=== PATIENT | male | born 1990 | race African-American/Black ===

== ENCOUNTER 2022-07-27 13:18 | Emergency (ER) | payer OTHER ==
[2022-07-27 13:40] VITALS: RESP 16
[2022-07-27] MEDS ORDERED: IBUPROFEN 800 MG TAB PO STA (14:00)
--- NOTE | 2022-07-27 14:12 | ED ---
General Adult HPI - General Chief complaint: Extremity Problem,Nontraumatic Stated complaint: left arm pain/weakness Time Seen by Provider: 07/27/22 13:43 Source: patient, RN notes reviewed, old records reviewed Mode of arrival: ambulatory - History of Present Illness Initial comments: Patient is a 31-year-old male who presents to [facility] Department complaining of left elbow pain. Atraumatic. States it started 2 days ago. Primary located over the superior aspect of the posterior left elbow. Tender on palpation. Tenderness with full flexion and extension. No tenderness over the bicep or tricep muscle. No obvious injury. No obvious rash or skin changes. No numbness. Presents for further evaluation at this time. No fevers. - Related Data Home Medications Medication Instructions Recorded Confirmed No Known Home Medications 07/27/22 07/27/22 Allergies Allergy/AdvReac Type Severity Reaction Status Date / Time No Known Allergies Allergy Verified 07/27/22 15:05 Review of Systems ROS Statement: Those systems with pertinent positive or pertinent negative responses have been documented in the HPI. Review of Systems: CONST: Denies fever EYES: Denies blurry vision ENT: Denies nasal congestion C/V: Denies Chest pain RESP: Denies shortness of breath GI: Denies abdominal pain : Denies dysuria SKIN: Denies rash. MSK: Endorses left elbow pain NEURO: Denies headache ROS Other: All systems not noted in ROS Statement are negative. Past Medical History Past Medical History: Hypertension History of Any Multi-Drug Resistant Organisms: None Reported Past Surgical History: No Surgical Hx Reported Past Psychological History: No Psychological Hx Reported Smoking Status: Current every day smoker Past Alcohol Use History: Occasional Past Drug Use History: Marijuana General Exam - General Exam Comments Initial Comments: General: Appears in no acute distress. HEAD: Normal with no signs of head trauma. EYES: EOMI. ENT: Hearing grossly intact. RESPIRATORY: No respiratory distress. C/V: Regular rate and rhythm. ABD: Abdomen is nondistended. EXT: No obvious deformity. Tenderness to palpation over the posterior aspect of the superior left elbow along the distal humerus but no obvious step-offs or deformities. Normal range of motion. Neurovascular intact in the left upper extremity. No obvious injury. Exam unremarkable. Skin unremarkable. SKIN: No rashes or lesions observed on exposed skin. NEURO: Alert and oriented. Course Vital Signs 07/27/22 07/27/22 13:35 15:21 Temperature 98.1 F 98 F Pulse Rate 87 84 Respiratory 16 16 Rate Blood Pressure 129/94 120/76 O2 Sat by Pulse 99 99 Oximetry Medical Decision Making - Medical Decision Making Was pt. sent in by a medical professional or institution (, RIGO, ASBESTOS ABATEMENT TECHNICIAN, urgent care, hospital, or custodial...) When possible be specific @ -No Did you speak to anyone other than the patient for history (EMS, parent, family, police, friend...)? What history was obtained from this source @ -No Did you review nursing and triage notes (agree or disagree)? Why? @ -I reviewed and agree with nursing and triage notes Were old charts reviewed (outside hosp., previous admission, EMS record, old EKG, old radiological studies, urgent care reports/EKG's, custodial records)? Report findings @ -No old charts were reviewed Differential Diagnosis (chest pain, altered mental status, abdominal pain women, abdominal pain men, vaginal bleeding, weakness, fever, dyspnea, syncope, headache, dizziness, GI bleed, back pain, seizure, CVA, palpatations, mental health, musculoskeletal)? @ -Muscle Strain, muscle sprain, elbow fracture. This list is not all-in clusive. EKG interpreted by me (3pts min.). @ -None done X-rays interpreted by me (1pt min.). @ -Patient's left elbow x-ray negative for any acute traumatic injury that is obvious. CT interpreted by me (1pt min.). @ -None done U/S interpreted by me (1pt. min.). @ -None done What testing was considered but not performed or refused? (CT, X-rays, U/S, labs)? Why? @ -None What meds were considered but not given or refused? Why? @ -None Did you discuss the management of the patient with other professionals (professionals i.e. RIGO Galdamez, ASBESTOS ABATEMENT TECHNICIAN, lab, RT, psych nurse, social media content manager, digital account executive, teacher, airconditioning drafting officer, case liner)? Give summary @ -No Was smoking cessation discussed for >3mins.? @ -No Was critical care preformed (if so, how long)? @ -No Were there social determinants of health that impacted care today? How? (Homelessness, low income, unemployed, alcoholism, drug addiction, transportation, low edu. Level, literacy, decrease access to med. care, residential, rehab)? @ -No Was there de-escalation of care discussed even if they declined (Discuss DNR or withdrawal of care, Hospice)? DNR status @ -No What co-morbidities impacted this encounter? (DM, HTN, Smoking, COPD, CAD, Cancer, CVA, ARF, Chemo, Hep., AIDS, mental health diagnosis, sleep apnea, morbid obesity)? @ -None Was patient admitted / discharged? Hospital course, mention meds given and route, prescriptions, significant lab abnormalities, going to OR and other pertinent info. @ -Based on the patient's presentation and physical exam, I'm concerned for left elbow injury. His atraumatic. We will obtain x-ray imaging and left elbow and he will be provided with oral ibuprofen for analgesia. Patient was in agreement with this plan. Exam unremarkable. Vital signs within acceptable limits. Patient's x-ray negative for any acute fracture or subluxation. Discussed the findings with the patient. He'll be discharged home at this time. Discussed icing, rest, elevation as well as [id number] analgesic medications for pain control. Recommended follow-up with orthopedics. Strict return precautions discussed. He'll be given a work note. He was in agreement this plan. I instructed the patient to follow up with their PCP in the next 1-3 days. I provided contact information for follow up with orthopedics. I explained that the patient should return to the emergency department if they experience any worsening symptoms. Strict return precautions were discussed with the patient. The patient expressed understanding of these instructions. I answered all questions that the patient had. The patient was discharged home in good condition with their prescriptions and follow up information. Undiagnosed new problem with uncertain prognosis? @ -No Drug Therapy requiring intensive monitoring for toxicity (Heparin, Nitro, Insulin, Cardizem)? @ -No Were any procedures done? @ -No Diagnosis/symptom? @ -Left elbow strain, sprain Acute, or Chronic, or Acute on Chronic? @ -Acute Uncomplicated (without systemic symptoms) or Complicated (systemic symptoms)? @ -uncomplicated Side effects of treatment? @ -none Exacerbation, Progression, or Severe Exacerbation] @ -no Poses a threat to life or bodily function? @ -no Disposition Clinical Impression: Sprain of elbow, left Disposition: HOME SELF-CARE Condition: Good Instructions (If sedation given, give patient instructions): Muscle Strain (ED) Is patient prescribed a controlled substance at d/c from ED?: No Referrals: None,Stated [Primary Care Provider] - 1-2 days Ganga Mon DO [Doctor of Osteopathic Medicine] - 1-2 days Time of Disposition: 14:46
--- NOTE | 2022-07-27 14:25 | XR ---
EXAMINATION TYPE: XR elbow complete LT DATE OF EXAM: 07/27/2022 COMPARISON: NONE HISTORY: 31-year-old male with pain TECHNIQUE: 3 views FINDINGS: No elbow joint effusion. No acute fracture, subluxation, or dislocation seen. IMPRESSION: No acute osseous abnormality seen.
[2022-07-27 15:22] VITALS: BP 120/76; PULSE 84; TEMP 98
== END 2022-07-27 15:22 | disposition home or self-care (01) ==
LOC: EC 13:18
DX: S53.402A Unspecified sprain of left elbow, initial encounter (principal); I10 Essential (primary) hypertension; F12.90 Cannabis use, unspecified, uncomplicated; F17.200 Nicotine dependence, unspecified, uncomplicated; X58.XXXA Exposure to other specified factors, initial encounter
CPT/HCPCS: 99283

== ENCOUNTER 2024-01-24 11:31 | Emergency (ER) | payer OTHER ==
[2024-01-24 11:45] VITALS: TEMP 98.7
--- NOTE | 2024-01-24 12:17 | ED ---
General Adult HPI - General Chief complaint: Extremity Injury, Lower Stated complaint: L foot pain Time Seen by Provider: 01/24/24 11:48 Source: patient, RN notes reviewed Mode of arrival: ambulatory Limitations: no limitations - History of Present Illness Initial comments: Patient is a 33-year-old male presenting to the emergency department with concer ns for left foot pain. Patient states he was walking steps yesterday when he tripped. Patient inverted his left foot. Patient has had pain since that time. No other area of injury or concern. Patient is able to ambulate with pain. No head injury or loss of consciousness - Related Data Previous Rx's Medication Instructions Recorded Ibuprofen [Motrin] 600 mg PO Q6HR PRN #20 tab 01/24/24 Allergies Allergy/AdvReac Type Severity Reaction Status Date / Time No Known Allergies Allergy Verified 07/27/22 15:05 Review of Systems ROS Statement: Those systems with pertinent positive or pertinent negative responses have been documented in the HPI. ROS Other: All systems not noted in ROS Statement are negative. Constitutional: Denies: fever Eyes: Denies: eye pain ENT: Denies: ear pain Respiratory: Denies: dyspnea Musculoskeletal: Reports: as per HPI. Denies: back pain Past Medical History Past Medical History: Hypertension History of Any Multi-Drug Resistant Organisms: None Reported Past Surgical History: No Surgical Hx Reported Past Psychological History: No Psychological Hx Reported Smoking Status: Current every day smoker Past Alcohol Use History: Occasional Past Drug Use History: Marijuana General Exam Limitations: no limitations General appearance: alert, in no apparent distress Head exam: Present: atraumatic, normocephalic Eye exam: Present: normal appearance Neck exam: Present: normal inspection. Absent: tenderness Respiratory exam: Present: normal lung sounds bilaterally Cardiovascular Exam: Present: regular rate, normal rhythm Expanded Peripheral pulses: 2+: Posterior Tibialis (L) GI/Abdominal exam: Present: soft. Absent: tenderness Extremities exam: Present: tenderness (Left medial/lateral foot with mild swelling and moderate tenderness. Distally the extremity is neurovascular intact) Neurological exam: Present: alert. Absent: motor sensory deficit Psychiatric exam: Present: normal affect, normal mood Skin exam: Present: normal color Course Vital Signs 01/24/24 01/24/24 11:43 12:21 Temperature 98.7 F Pulse Rate 95 102 H Respiratory 16 14 Rate Blood Pressure 99/63 124/85 O2 Sat by Pulse 99 97 Oximetry Medical Decision Making - Medical Decision Making Was pt. sent in by a medical professional or institution (, RIGO, COMB SETTER, urgent care, hospital, or prison...) When possible be specific @ -No Did you speak to anyone other than the patient for history (EMS, parent, family, police, friend...)? What history was obtained from this source @ -No Did you review nursing and triage notes (agree or disagree)? Why? @ -I reviewed and agree with nursing and triage notes Were old charts reviewed (outside hosp., previous admission, EMS record, old EKG, old radiological studies, urgent care reports/EKG's, prison records)? Report findings @ -No old charts were reviewed Differential Diagnosis (chest pain, altered mental status, abdominal pain women, abdominal pain men, vaginal bleeding, weakness, fever, dyspnea, syncope, headache, dizziness, GI bleed, back pain, seizure, CVA, palpatations, mental health, musculoskeletal)? @ -Differential Musculoskeletal Muscular strain, contusion, ligament sprain, fracture, arthritis, septic arthritis, bursitis, cellulitis, muscle spasm, nerve compression, DVT, arterial occlusion, herpes zoster, electrolyte abnormality, tumor.... This is not meant to be in all inclusive list EKG interpreted by me (3pts min.). @ -As above X-rays interpreted by me (1pt min.). @ -X-ray of the left foot does not reveal acute fracture CT interpreted by me (1pt min.). @ -None done U/S interpreted by me (1pt. min.). @ -None done What testing was considered but not performed or refused? (CT, X-rays, U/S, labs)? Why? @ -None What meds were considered but not given or refused? Why? @ -None Did you discuss the management of the patient with other professionals (professionals i.e. RIGO Galdamez, COMB SETTER, lab, RT, psych nurse, social welfare research worker, pulp plant supervisor, teacher, program officer, case consultant)? Give summary @ -No Was smoking cessation discussed for >3mins.? @ -No Was critical care preformed (if so, how long)? @ -No Were there social determinants of health that impacted care today? How? (Homelessness, low income, unemployed, alcoholism, drug addiction, transportation, low edu. Level, literacy, decrease access to med. care, skilled nursing, rehab)? @ -No Was there de-escalation of care discussed even if they declined (Discuss DNR or withdrawal of care, Hospice)? DNR status @ -No What co-morbidities impacted this encounter? (DM, HTN, Smoking, COPD, CAD, Cancer, CVA, ARF, Chemo, Hep., AIDS, mental health diagnosis, sleep apnea, morbid obesity)? @ -None Was patient admitted / discharged? Hospital course, mention meds given and route, prescriptions, significant lab abnormalities, going to OR and other pertinent info. @ -Patient presents with left foot pain and swelling following fall and twisting. X-ray unremarkable. Patient updated. Patient will be discharged Undiagnosed new problem with uncertain prognosis? @ -No Drug Therapy requiring intensive monitoring for toxicity (Heparin, Nitro, Insulin, Cardizem)? @ -No Were any procedures done? @ -No Diagnosis/symptom? @ -Left foot sprain Acute, or Chronic, or Acute on Chronic? @ -Acute Uncomplicated (without systemic symptoms) or Complicated (systemic symptoms)? @ -Default Side effects of treatment? @ -No Exacerbation, Progression, or Severe Exacerbation? @ -No Poses a threat to life or bodily function? How? (Chest pain, [place], [place], pneumonia, PE, COPD, DKA, ARF, appy, cholecystitis, CVA, Diverticulitis, Homicidal, Suicidal, threat to staff... and all critical care pts) @ -No Disposition Clinical Impression: Sprain of foot, left Disposition: HOME SELF-CARE Condition: Stable Instructions (If sedation given, give patient instructions): Foot Sprain (ED) Additional Instructions: Prescription for Motrin 600 sent to pharmacy. [id number] Tylenol as needed. Ice to affected area. Return for increased pain, swelling, worsening symptoms or other concerns. Please follow-up with your primary care physician in the next couple of days for recheck. Prescriptions: Ibuprofen [Motrin] 600 mg PO Q6HR PRN #20 tab PRN Reason: Pain Is patient prescribed a controlled substance at d/c from ED?: No Referrals: Jono Jimenez MD [STAFF PHYSICIAN] - 1-2 days Forms: Area PCPs Time of Disposition: 13:17
--- NOTE | 2024-01-24 12:47 | XR ---
EXAMINATION TYPE: XR foot complete LT DATE OF EXAM: 01/24/2024 12:27 PM COMPARISON: None CLINICAL INDICATION: Male, 33 years old with history of fall; pain TECHNIQUE: XR foot complete LT examined in the AP, oblique, and lateral projections. FINDINGS: No evidence of any acute osseous pathology. IMPRESSION: No evidence of acute fracture. [facility], , 01/24/2024 12:45 PM
[2024-01-24] MEDS: IBUPROFEN 600 MG TAB PO STA (13:33)
[2024-01-24] MEDS: ACETAMINOPHEN TAB 500 MG TAB PO STA (13:34)
[2024-01-24 13:55] VITALS: BP 125/84; PULSE 82; RESP 18
== END 2024-01-24 13:54 | disposition home or self-care (01) ==
LOC: EC 11:31
DX: S93.602A Unspecified sprain of left foot, initial encounter (principal); F17.200 Nicotine dependence, unspecified, uncomplicated; W01.0XXA Fall on same level from slipping, tripping and stumbling without subsequent striking against object, initial encounter; Y93.01 Activity, walking, marching and hiking
CPT/HCPCS: 99283

== ENCOUNTER 2024-02-15 18:18 | Emergency (ER) | payer OTHER ==
[2024-02-15 18:39] VITALS: RESP 18; TEMP 98.3
[2024-02-15 18:57] VITALS: BP 131/97; PULSE 85
--- NOTE | 2024-02-15 19:10 | ED ---
General Adult HPI - General Chief complaint: Recheck/Abnormal Lab/Rx Stated complaint: Swollen thyroid gland Time Seen by Provider: 02/15/24 18:51 Source: patient, RN notes reviewed, old records reviewed Mode of arrival: ambulatory Limitations: no limitations - History of Present Illness Initial comments: 33 male presenting with chief complaint of possible swollen thyroid gland. Patient was seen at the [facility] and was thought to have a enlarged thyroid gland. Patient has no medical history. He takes no medications. No recent weight loss or weight gain. No night sweats. He is not fatigued. He states he feels totally fine. no recent Illness. - Related Data Previous Rx's Medication Instructions Recorded Ibuprofen [Motrin] 600 mg PO Q6HR PRN #20 tab 01/24/24 Allergies Allergy/AdvReac Type Severity Reaction Status Date / Time No Known Allergies Allergy Verified 02/15/24 18:33 Review of Systems ROS Statement: Those systems with pertinent positive or pertinent negative responses have been documented in the HPI. ROS Other: All systems not noted in ROS Statement are negative. Past Medical History Past Medical History: Hypertension History of Any Multi-Drug Resistant Organisms: None Reported Past Surgical History: No Surgical Hx Reported Past Psychological History: No Psychological Hx Reported Smoking Status: Current every day smoker Past Alcohol Use History: Occasional Past Drug Use History: Marijuana General Exam Limitations: no limitations General appearance: alert, in no apparent distress Head exam: Present: atraumatic, normocephalic Eye exam: Present: normal appearance, PERRL ENT exam: Present: normal exam, normal oropharynx Neck exam: Present: normal inspection. Absent: thyromegaly (No significant thyromegaly or thyroid tenderness, no skin changes) Respiratory exam: Present: normal lung sounds bilaterally. Absent: respiratory distress, wheezes Cardiovascular Exam: Present: regular rate, normal rhythm GI/Abdominal exam: Present: soft. Absent: distended, tenderness, guarding Extremities exam: Present: normal inspection, normal capillary refill Neurological exam: Present: alert, oriented X3 Psychiatric exam: Present: normal affect, normal mood Skin exam: Present: warm, dry, intact Course Vital Signs 02/15/24 02/15/24 18:33 18:56 Temperature 98.3 F Pulse Rate 98 85 Respiratory 18 18 Rate Blood Pressure 130/82 131/97 O2 Sat by Pulse 99 98 Oximetry Medical Decision Making - Medical Decision Making Was pt. sent in by a medical professional or institution (RIGO Galdamez, PAPER GOODS MACHINE OPERATOR, urgent care, hospital, or fpc...) When possible be specific @ -No Did you speak to anyone other than the patient for history (EMS, parent, family, police, friend...)? What history was obtained from this source @ -No Did you review nursing and triage notes (agree or disagree)? Why? @ -I reviewed and agree with nursing and triage notes Were old charts reviewed (outside hosp., previous admission, EMS record, old EKG, old radiological studies, urgent care reports/EKG's, fpc records)? Report findings @ -No old charts were reviewed Differential Diagnosis:, Goiter, thyromegaly, lymphadenopathy EKG interpreted by me (3pts min.). @ -As above X-rays interpreted by me (1pt min.). @ -None done CT interpreted by me (1pt min.). @ -None done U/S interpreted by me (1pt. min.). @ -None done What testing was considered but not performed or refused? (CT, X-rays, U/S, labs)? Why? @ -None What meds were considered but not given or refused? Why? @ -None Did you discuss the management of the patient with other professionals (professionals i.e. RIGO Galdamez, PAPER GOODS MACHINE OPERATOR, lab, RT, psych nurse, social sciences professor, all source intelligence technician, teacher, chief compliance officer, nurse outreach case manager)? Give summary @ -No Was smoking cessation discussed for >3mins.? @ -No Was critical care preformed (if so, how long)? @ -No Were there social determinants of health that impacted care today? How? (Homelessness, low income, unemployed, alcoholism, drug addiction, transportation, low edu. Level, literacy, decrease access to med. care, penitentiary, rehab)? @ -No Was there de-escalation of care discussed even if they declined (Discuss DNR or withdrawal of care, Hospice)? DNR status @ -No What co-morbidities impacted this encounter? (DM, HTN, Smoking, COPD, CAD, Cancer, CVA, ARF, Chemo, Hep., AIDS, mental health diagnosis, sleep apnea, morbid obesity)? @ -None Was patient admitted / discharged? Hospital course, mention meds given and route, prescriptions, significant lab abnormalities, going to OR and other pertinent info. @ -33-year-old male who presents for possible thyroid enlargement. Patient clinically does not have a significantly enlarged thyroid. There is no thyroid tenderness. There is no systemic symptoms. We discussed the possibility of outpatient workup and the patient prefers to see a primary care provider for further thyroid evaluation. No emergency identified at this time. Stable for discharge. Undiagnosed new problem with uncertain prognosis? @ -No Drug Therapy requiring intensive monitoring for toxicity (Heparin, Nitro, Insulin, Cardizem)? @ -No Were any procedures done? @ -No Diagnosis/symptom? @ -[Well check Acute, or Chronic, or Acute on Chronic? @ -Acute Uncomplicated (without systemic symptoms) or Complicated (systemic symptoms)? @ -[default Side effects of treatment? @ -No Exacerbation, Progression, or Severe Exacerbation? @ -No Poses a threat to life or bodily function? How? (Chest pain, [place], [place], pneumonia, PE, COPD, DKA, ARF, appy, cholecystitis, CVA, Diverticulitis, Homicidal, Suicidal, threat to staff... and all critical care pts) @ -No Disposition Clinical Impression: Thyroid disorder screening Disposition: HOME SELF-CARE Condition: Fair Additional Instructions: Please follow-up with primary care provider for outpatient workup of suspected thyroid enlargement. Is patient prescribed a controlled substance at d/c from ED?: No Referrals: None,Stated [Primary Care Provider] - 1-2 days Madhu Quintanilla DO [REFERRING] - 1-2 days Charles Barahona MD [STAFF PHYSICIAN] - 1-2 days Jose Dewey MD [STAFF PHYSICIAN] - 1-2 days Time of Disposition: 19:12
== END 2024-02-15 19:23 | disposition home or self-care (01) ==
LOC: EC 18:18
DX: E07.9 Disorder of thyroid, unspecified (principal); F17.200 Nicotine dependence, unspecified, uncomplicated
CPT/HCPCS: 99283

== ENCOUNTER 2024-08-17 13:52 | Observation (INO) | payer OTHER ==
--- NOTE | 2024-08-17 14:32 | ED ---
Nausea/Vomiting/Diarrhea HPI - General Chief complaint: Nausea/Vomiting/Diarrhea Stated complaint: Dehydration Time Seen by Provider: 08/17/24 14:30 Source: patient, RN notes reviewed Mode of arrival: wheelchair - History of Present Illness Initial comments: 33-year-old male with history of alcohol use disorder presenting for nausea/vomiting since this morning. Also endorses chills. Denies abdominal pain or diarrhea. States he has had approximately 3 episodes of vomiting. States he drinks approximately 1 pint today. Last drink was last night around 1 AM. Denies chest pain, shortness of breath. He is a daily tobacco smoker, occasional marijuana use. He has a history of hypertension otherwise no significant medical history. Denies history of abdominal surgeries. - Related Data Previous Rx's Medication Instructions Recorded Ibuprofen [Motrin] 600 mg PO Q6HR PRN #20 tab 01/24/24 Allergies Allergy/AdvReac Type Severity Reaction Status Date / Time No Known Allergies Allergy Verified 08/17/24 14:18 Review of Systems ROS Statement: Those systems with pertinent positive or pertinent negative responses have been documented in the HPI. ROS Other: All systems not noted in ROS Statement are negative. Past Medical History Past Medical History: Hypertension History of Any Multi-Drug Resistant Organisms: None Reported Past Surgical History: No Surgical Hx Reported Past Psychological History: No Psychological Hx Reported Smoking Status: Current every day smoker Past Alcohol Use History: Daily Past Drug Use History: Marijuana General Exam General appearance: alert, in no apparent distress Head exam: Present: atraumatic, normocephalic, normal inspection Eye exam: Present: normal appearance, PERRL, EOMI. Absent: scleral icterus, conjunctival injection, periorbital swelling Respiratory exam: Present: normal lung sounds bilaterally. Absent: respiratory distress, wheezes, rales, rhonchi, stridor Cardiovascular Exam: Present: regular rate, normal rhythm, normal heart sounds. Absent: systolic murmur, diastolic murmur, rubs, gallop, clicks GI/Abdominal exam: Present: soft, normal bowel sounds. Absent: distended, tenderness, guarding, rebound, rigid Back exam: Absent: CVA tenderness (R), CVA tenderness (L) Neurological exam: Present: alert, oriented X3 Psychiatric exam: Present: normal affect, normal mood Skin exam: Present: warm, dry, intact, normal color. Absent: rash Course Vital Signs 08/17/24 08/17/24 14:14 17:03 Temperature 98.0 F 98.7 F Pulse Rate 95 80 Respiratory 16 18 Rate Blood Pressure 127/75 135/83 O2 Sat by Pulse 97 99 Oximetry Medical Decision Making - Medical Decision Making Was pt. sent in by a medical professional or institution (, RIGO, HOT SAW OPERATOR, urgent care, hospital, or prison...) When possible be specific @ -No Did you speak to anyone other than the patient for history (EMS, parent, family, police, friend...)? What history was obtained from this source @ -No Did you review nursing and triage notes (agree or disagree)? Why? @ -I reviewed and agree with nursing and triage notes Were old charts reviewed (outside hosp., previous admission, EMS record, old EKG, old radiological studies, urgent care reports/EKG's, prison records)? Report findings @ -No old charts were reviewed Differential Diagnosis (chest pain, altered mental status, abdominal pain women, abdominal pain men, vaginal bleeding, weakness, fever, dyspnea, syncope, headache, dizziness, GI bleed, back pain, seizure, CVA, palpatations, mental health, musculoskeletal)? @ -Differential Abdominal Pain Men: Appendicitis, cholecystitis, diverticulosis, ischemic bowel, pancreatitis, hepatitis, UTI, gastroenteritis, AAA, incarcerated hernia, bowel obstruction, constipation, inflammatory bowel, hepatitis, peptic ulcer disease, splenic infarction, perforated viscus, testicular torsion, this is not meant to be an all-inclusive list EKG interpreted by me (3pts min.). @ -None X-rays interpreted by me (1pt min.). @ -None done CT interpreted by me (1pt min.). @ -CT abdomen pelvis shows no acute process U/S interpreted by me (1pt. min.). @ -None done What testing was considered but not performed or refused? (CT, X-rays, U/S, labs)? Why? @ -None What meds were considered but not given or refused? Why? @ -None Did you discuss the management of the patient with other professionals (professionals i.e. RIGO Galdamez, HOT SAW OPERATOR, lab, RT, psych nurse, manager social media, dramatic agent, teacher, probation and parole officer, heel caser)? Give summary @ -I spoke with Dr. Leal who accepts admission Was smoking cessation discussed for >3mins.? @ -No Was critical care preformed (if so, how long)? @ -No Were there social determinants of health that impacted care today? How? (Homelessness, low income, unemployed, alcoholism, drug addiction, transp ortation, low edu. Level, literacy, decrease access to med. care, [facility], rehab)? @ -No Was there de-escalation of care discussed even if they declined (Discuss DNR or withdrawal of care, Hospice)? DNR status @ -No What co-morbidities impacted this encounter? (DM, HTN, Smoking, COPD, CAD, Cancer, CVA, ARF, Chemo, Hep., AIDS, mental health diagnosis, sleep apnea, morbid obesity)? @ -None Was patient admitted / discharged? Hospital course, mention meds given and route, prescriptions, significant lab abnormalities, going to OR and other pertinent info. @ - admitted. 33-year-old male presenting for nausea/vomiting since this morning. States he drinks a pint of alcohol per day. No fevers, abdominal pain, or diarrhea. Provided with IV fluids and Zofran. Lab work remarkable for leukocytosis white count 25, lactic acidosis of 11.2, AST 276, ALT 90, anion gap 31, blood pH 7.23. Acetone negative, serum alcohol negative. Blood glucose 78. Urinalysis remarkable for 1+ ketones. CT abdomen pelvis reveals no acute process. Lactic acidosis trending down to 9.8. Discussed diagnosis of alcoho lic ketoacidosis with patient. Patient switched to D5 and will be admitted to medicine. [place] protocol initiated. Case was discussed with my ED attending Dr. Andre Undiagnosed new problem with uncertain prognosis? @ -No Drug Therapy requiring intensive monitoring for toxicity (Heparin, Nitro, Ins ulin, Cardizem)? @ -No Were any procedures done? @ -No Diagnosis/symptom? @ -Alcoholic ketoacidosis Acute, or Chronic, or Acute on Chronic? @ -Acute Uncomplicated (without systemic symptoms) or Complicated (systemic symptoms)? @ -Complicated Side effects of treatment? @ -No Exacerbation, Progression, or Severe Exacerbation? @ -No Poses a threat to life or bodily function? How? (Chest pain, USA, LA, pneumonia, PE, COPD, DKA, ARF, appy, cholecystitis, CVA, Diverticulitis, Homicidal, Suicidal, threat to staff... and all critical care pts) @ -Yes - Lab Data Result diagrams: 08/17/24 15:22 08/17/24 15:22 Lab Results 08/17/24 08/17/24 08/17/24 Range/Units 15:22 15:22 15:22 WBC 25.16 H (4.50-10.00) 10*3/uL RBC 5.60 (4.40-5.60) 10*6/uL Hgb 17.7 H (13.0-17.0) g/dL Hct 54.0 H (39.6-50.0) % MCV 96.4 (80.0-97.0) fL MCH 31.6 (27.0-32.0) pg MCHC 32.8 (32.0-37.0) g/dL Plt Count 285 (140-440) 10*3/uL MPV 11.3 (9.5-12.2) fL Immature Gran % (Auto) 0.6 % Neutrophils % 86.3 % Lymphocytes % 6.0 % Monocytes % 6.4 % Eosinophils % 0.0 % Basophils % 0.7 % Immature Gran # 0.14 H (0.00-0.04) 10*3/uL Neutrophils # 21.71 H (1.80-7.70) 10*3/uL Lymphocytes # 1.52 (0.90-5.00) 10*3/uL Monocytes # 1.62 H (0.20-1.00) 10*3/uL Eosinophils # 0.00 L (0.04-0.35) 10*3/uL Basophils # 0.17 H (0.00-0.10) 10*3/uL PT (10.0-12.5) sec INR (<1.2) APTT (22.0-30.0) sec VBG pH (7.31-7.41) VBG pCO2 (37-51) mmHg VBG HCO3 (24-28) mmol/L Sodium 145 (137-145) mmol/L Potassium 4.7 (3.5-5.1) mmol/L Chloride 104 (98-107) mmol/L Carbon Dioxide 10 L (22-30) mmol/L Anion Gap 31 mmol/L BUN 13 (9-20) mg/dL Creatinine 1.06 (0.66-1.25) mg/dL Est GFR (CKD-EPI)AfAm >90 (>60 ml/min/1.73 sqM) Est GFR (CKD-EPI)NonAf >90 (>60 ml/min/1.73 sqM) Glucose 78 (74-99) mg/dL Lactic Ac Sepsis Rflx Plasma Lactic Acid [place] 11.2 H* (0.7-2.0) mmol/L Calcium 10.8 H (8.4-10.2) mg/dL Phosphorus (2.5-4.5) mg/dL Magnesium (1.6-2.3) mg/dL Total Bilirubin 1.8 H (0.2-1.3) mg/dL AST 276 H (17-59) U/L ALT 90 H (4-49) U/L Alkaline Phosphatase 81 (38-126) U/L Creatine Kinase (55-170) U/L Total Protein 9.4 H (6.3-8.2) g/dL Albumin 5.9 H (3.5-5.0) g/dL Lipase 100 (23-300) U/L Urine Color Urine Appearance (Clear) Urine pH (5.0-8.0) Ur Specific [place] (1.001-1.035) Urine Protein (Negative) Urine Glucose (UA) (Negative) Urine Ketones (Negative) Urine Blood (Negative) Urine Nitrite (Negative) Urine Bilirubin (Negative) Urine Urobilinogen (<2.0) mg/dL Ur Leukocyte Esterase (Negative) Serum Alcohol mg/dL Acetone, Qual (Negative) 08/17/24 08/17/24 08/17/24 Range/Units 15:59 16:45 17:32 WBC (4.50-10.00) 10*3/uL RBC (4.40-5.60) 10*6/uL Hgb (13.0-17.0) g/dL Hct (39.6-50.0) % MCV (80.0-97.0) fL MCH (27.0-32.0) pg MCHC (32.0-37.0) g/dL Plt Count (140-440) 10*3/uL MPV (9.5-12.2) fL Immature Gran % (Auto) % Neutrophils % % Lymphocytes % % Monocytes % % Eosinophils % % Basophils % % Immature Gran # (0.00-0.04) 10*3/uL Neutrophils # (1.80-7.70) 10*3/uL Lymphocytes # (0.90-5.00) 10*3/uL Monocytes # (0.20-1.00) 10*3/uL Eosinophils # (0.04-0.35) 10*3/uL Basophils # (0.00-0.10) 10*3/uL PT 13.8 H (10.0-12.5) sec INR 1.3 H (<1.2) APTT 23.7 (22.0-30.0) sec VBG pH 7.23 L (7.31-7.41) VBG pCO2 46 (37-51) mmHg VBG HCO3 19 L (24-28) mmol/L Sodium (137-145) mmol/L Potassium (3.5-5.1) mmol/L Chloride (98-107) mmol/L Carbon Dioxide (22-30) mmol/L Anion Gap mmol/L BUN (9-20) mg/dL Creatinine (0.66-1.25) mg/dL Est GFR (CKD-EPI)AfAm (>60 ml/min/1.73 sqM) Est GFR (CKD-EPI)NonAf (>60 ml/min/1.73 sqM) Glucose (74-99) mg/dL Lactic Ac Sepsis Rflx Y Plasma Lactic Acid [place] (0.7-2.0) mmol/L Calcium (8.4-10.2) mg/dL Phosphorus (2.5-4.5) mg/dL Magnesium (1.6-2.3) mg/dL Total Bilirubin (0.2-1.3) mg/dL AST (17-59) U/L ALT (4-49) U/L Alkaline Phosphatase (38-126) U/L Creatine Kinase (55-170) U/L Total Protein (6.3-8.2) g/dL Albumin (3.5-5.0) g/dL Lipase (23-300) U/L Urine Color Urine Appearance (Clear) Urine pH (5.0-8.0) Ur Specific [place] (1.001-1.035) Urine Protein (Negative) Urine Glucose (UA) (Negative) Urine Ketones (Negative) Urine Blood (Negative) Urine Nitrite (Negative) Urine Bilirubin (Negative) Urine Urobilinogen (<2.0) mg/dL Ur Leukocyte Esterase (Negative) Serum Alcohol mg/dL Acetone, Qual (Negative) 08/17/24 08/17/24 08/17/24 Range/Units 17:32 17:58 17:58 WBC (4.50-10.00) 10*3/uL RBC (4.40-5.60) 10*6/uL Hgb (13.0-17.0) g/dL Hct (39.6-50.0) % MCV (80.0-97.0) fL MCH (27.0-32.0) pg MCHC (32.0-37.0) g/dL Plt Count (140-440) 10*3/uL MPV (9.5-12.2) fL Immature Gran % (Auto) % Neutrophils % % Lymphocytes % % Monocytes % % Eosinophils % % Basophils % % Immature Gran # (0.00-0.04) 10*3/uL Neutrophils # (1.80-7.70) 10*3/uL Lymphocytes # (0.90-5.00) 10*3/uL Monocytes # (0.20-1.00) 10*3/uL Eosinophils # (0.04-0.35) 10*3/uL Basophils # (0.00-0.10) 10*3/uL PT (10.0-12.5) sec INR (<1.2) APTT (22.0-30.0) sec VBG pH (7.31-7.41) VBG pCO2 (37-51) mmHg VBG HCO3 (24-28) mmol/L Sodium (137-145) mmol/L Potassium (3.5-5.1) mmol/L Chloride (98-107) mmol/L Carbon Dioxide (22-30) mmol/L Anion Gap mmol/L BUN (9-20) mg/dL Creatinine (0.66-1.25) mg/dL Est GFR (CKD-EPI)AfAm (>60 ml/min/1.73 sqM) Est GFR (CKD-EPI)NonAf (>60 ml/min/1.73 sqM) Glucose (74-99) mg/dL Lactic Ac Sepsis Rflx Plasma Lactic Acid [place] 9.8 H* (0.7-2.0) mmol/L Calcium (8.4-10.2) mg/dL Phosphorus 5.3 H (2.5-4.5) mg/dL Magnesium 1.6 (1.6-2.3) mg/dL Total Bilirubin (0.2-1.3) mg/dL AST (17-59) U/L ALT (4-49) U/L Alkaline Phosphatase (38-126) U/L Creatine Kinase 126 (55-170) U/L Total Protein (6.3-8.2) g/dL Albumin (3.5-5.0) g/dL Lipase (23-300) U/L Urine Color Urine Appearance (Clear) Urine pH (5.0-8.0) Ur Specific [place] (1.001-1.035) Urine Protein (Negative) Urine Glucose (UA) (Negative) Urine Ketones (Negative) Urine Blood (Negative) Urine Nitrite (Negative) Urine Bilirubin (Negative) Urine Urobilinogen (<2.0) mg/dL Ur Leukocyte Esterase (Negative) Serum Alcohol <10 mg/dL Acetone, Qual Negative (Negative) 08/17/24 Range/Units 18:02 WBC (4.50-10.00) 10*3/uL RBC (4.40-5.60) 10*6/uL Hgb (13.0-17.0) g/dL Hct (39.6-50.0) % MCV (80.0-97.0) fL MCH (27.0-32.0) pg MCHC (32.0-37.0) g/dL Plt Count (140-440) 10*3/uL MPV (9.5-12.2) fL Immature Gran % (Auto) % Neutrophils % % Lymphocytes % % Monocytes % % Eosinophils % % Basophils % % Immature Gran # (0.00-0.04) 10*3/uL Neutrophils # (1.80-7.70) 10*3/uL Lymphocytes # (0.90-5.00) 10*3/uL Monocytes # (0.20-1.00) 10*3/uL Eosinophils # (0.04-0.35) 10*3/uL Basophils # (0.00-0.10) 10*3/uL PT (10.0-12.5) sec INR (<1.2) APTT (22.0-30.0) sec VBG pH (7.31-7.41) VBG pCO2 (37-51) mmHg VBG HCO3 (24-28) mmol/L Sodium (137-145) mmol/L Potassium (3.5-5.1) mmol/L Chloride (98-107) mmol/L Carbon Dioxide (22-30) mmol/L Anion Gap mmol/L BUN (9-20) mg/dL Creatinine (0.66-1.25) mg/dL Est GFR (CKD-EPI)AfAm (>60 ml/min/1.73 sqM) Est GFR (CKD-EPI)NonAf (>60 ml/min/1.73 sqM) Glucose (74-99) mg/dL Lactic Ac Sepsis Rflx Plasma Lactic Acid [place] (0.7-2.0) mmol/L Calcium (8.4-10.2) mg/dL Phosphorus (2.5-4.5) mg/dL Magnesium (1.6-2.3) mg/dL Total Bilirubin (0.2-1.3) mg/dL AST (17-59) U/L ALT (4-49) U/L Alkaline Phosphatase (38-126) U/L Creatine Kinase (55-170) U/L Total Protein (6.3-8.2) g/dL Albumin (3.5-5.0) g/dL Lipase (23-300) U/L Urine Color Colorless Urine Appearance Clear (Clear) Urine pH 5.5 (5.0-8.0) Ur Specific [place] >1.050 H (1.001-1.035) Urine Protein Negative (Negative) Urine Glucose (UA) Negative (Negative) Urine Ketones 1+ H (Negative) Urine Blood Negative (Negative) Urine Nitrite Negative (Negative) Urine Bilirubin Negative (Negative) Urine Urobilinogen <2.0 (<2.0) mg/dL Ur Leukocyte Esterase Negative (Negative) Serum Alcohol mg/dL Acetone, Qual (Negative) - EKG Data -: EKG Interpreted by Me EKG Comments: EKG reveals normal sinus rhythm with short AL interval. Ventricular rate 89 bpm, AL interval 112, QRS duration 97, QT/QTc 349/395 Disposition Clinical Impression: Alcoholic ketoacidosis Disposition: ADMITTED IP TO THIS HOSP Referrals: None,Stated [Primary Care Provider] - 1-2 days Time of Disposition: 19:33
[2024-08-17 15:30] LABS: Basophils # (A) 0.17 10*3/uL (0.00-0.10); Basophils % (A) 0.7 %; HGB 17.7 g/dL (13.0-17.0); Lymphocytes # (A) 1.52 10*3/uL (0.90-5.00); MCH 31.6 pg (27.0-32.0); MCHC 32.8 g/dL (32.0-37.0); MCV 96.4 fL (80.0-97.0); Mean Platelet Volume 11.3 fL (9.5-12.2); Monocytes # (A) 1.62 10*3/uL (0.20-1.00); Monocytes % (A) 6.4 %; Neutrophils # (A) 21.71 10*3/uL (1.80-7.70); Neutrophils % (A) 86.3 %; Platelet Count 285 10*3/uL (140-440); RDW 12.1 % (11.5-14.5); WBC 25.16 10*3/uL (4.50-10.00)
[2024-08-17 15:42] LABS: ALT 90 U/L (4-49); AST 276 U/L (17-59); African American GFR (CKD) >90 (>60 ml/min/1.73 sqM); Albumin 5.9 g/dL (3.5-5.0); Alkaline Phosphatase 81 U/L (38-126); Anion Gap 31 mmol/L; Blood Urea Nitrogen 13 mg/dL (9-20); Calcium 10.8 mg/dL (8.4-10.2); Carbon Dioxide 10 mmol/L (22-30); Chloride 104 mmol/L (98-107); Glucose 78 mg/dL (74-99); Lipase 100 U/L (23-300); Non-African American GFR(CKD) >90 (>60 ml/min/1.73 sqM); Potassium 4.7 mmol/L (3.5-5.1); Sodium 145 mmol/L (137-145); Total Bilirubin 1.8 mg/dL (0.2-1.3); Total Protein 9.4 g/dL (6.3-8.2)
[2024-08-17] MEDS: SODIUM CHLORIDE 0.9% 2,000 ML IV STA (16:54)
[2024-08-17 16:57] LABS: VBG PH 7.23 (7.31-7.41)
[2024-08-17 17:04] VITALS: TEMP 98.7
[2024-08-17 17:57] LABS: INR 1.3 (<1.2); Partial Thromboplastin Time 23.7 sec (22.0-30.0); Prothrombin Time 13.8 sec (10.0-12.5)
--- NOTE | 2024-08-17 17:57 | CT ---
EXAMINATION TYPE: CT abdomen pelvis w con DATE OF EXAM: 08/17/2024 5:51 PM COMPARISON: None. CLINICAL INDICATION: Male, 33 years old with history of abdominal pain, leukocytosis; Abdominal pain TECHNIQUE: Axial CT abdomen pelvis w con;Sagittal and coronal reformats were created on a separate w orkstation. Contrast used:100 ml mL of Isovue 300 with IV Contrast, (none if empty) Oral contrast used: without Oral Contrast (none if empty) CT DLP: 567.4 mGycm, Automated exposure control for dose reduction was used. FINDINGS: LOWER CHEST: Unremarkable ABDOMEN LIVER: Diffusely hypoattenuating parenchyma. GALLBLADDER AND BILE DUCTS: Unremarkable. PANCREAS: Unremarkable. SPLEEN: Unremarkable. ADRENAL GLANDS: Unremarkable. KIDNEYS AND URETERS: No evidence of hydronephrosis or renal calculus. The ureters are unremarkable. PELVIS BLADDER: No evidence for wall thickening or mass given limitations of exam. REPRODUCTIVE: Unremarkable. ABDOMEN & PELVIS STOMACH AND BOWEL: Stomach and duodenum are unremarkable. No evidence of bowel obstruction. Appendix is normal. PERITONEUM/RETROPERITONEUM: No evidence of pneumoperitoneum or free fluid. VASCULATURE: No evidence of aortic aneurysm. MUSCULOSKELETAL: No acute osseous abnormalities LYMPH NODES: No gross evidence for lymphadenopathy. SOFT TISSUE/ABDOMINAL WALL: Unremarkable IMPRESSION: No acute abnormality in the abdomen/pelvis CT findings to explain reported symptoms. [facility], , 08/17/2024 5:54 PM
[2024-08-17 18:17] LABS: Appearance,Urine Clear (Clear); Bilirubin,Urine Negative (Negative); Blood,Urine Negative (Negative); Color,Urine Colorless; Glucose,Urine (UA) Negative (Negative); Ketones,Urine 1+ (Negative); Leukocyte Esterase,Urine Negative (Negative); Nitrite,Urine Negative (Negative); PH, Urine 5.5 (5.0-8.0); Protein,Urine Negative (Negative); Urobilinogen,Urine <2.0 mg/dL (<2.0)
[2024-08-17] MEDS: DEXTROSE 5%-LACTATED RINGERS 1,000 ML IV SCH (18:17)
[2024-08-17 18:18] LABS: Specific Gravity,Urine >1.050 (1.001-1.035)
[2024-08-17 18:22] LABS: Alcohol <10 mg/dL; Creatine Kinase 126 U/L (55-170)
[2024-08-17 18:23] LABS: Phosphorus 5.3 mg/dL (2.5-4.5)
[2024-08-17 18:24] LABS: Magnesium 1.6 mg/dL (1.6-2.3)
[2024-08-17] MEDS ORDERED: NALOXONE 0.4 MG/ML 1 ML VIAL IV PRN (19:30)
[2024-08-17] MEDS ORDERED: IBUPROFEN 400 MG TAB PO PRN (19:30)
[2024-08-17] MEDS ORDERED: LORazepam 1 MG TAB PO PRN (19:32)
[2024-08-17] MEDS ORDERED: LORazepam 1 MG/0.5 ML VIAL IV PRN ×2 (19:32)
[2024-08-17] MEDS: ONDANSETRON 4 MG/2 ML VIAL IVP PRN (20:10)
[2024-08-17] MEDS: LORazepam 1 MG/0.5 ML VIAL IV PRN (20:22)
--- NOTE | 2024-08-18 02:17 | P.HPIM ---
History of Present Illness H&P Date: 08/17/24 Chief Complaint: Dehydration and vomiting 33-year-old male with no significant past medical history Presented with dehydration and vomiting. He reported drinking a whole pint of alcohol yesterday and admits to drinking often. This morning, he experienced vomiting with some blood, described as 'a few streaks'. He also noted dark stools. Cb22 denied abdominal pain but reported feeling nauseated. He mentioned feeling very hot and not having air conditioning at home. The patient denied any burning when urinating, fevers, coughing, or other symptoms of illness. He reports drinking alcohol often, including a whole pint yesterday. He smokes marijuana but denies use of other drugs. He does not have air conditioning at home. review of systems Pertinent positives as noted in HPI. All other systems were reviewed and are negative Constitutional: Reports feeling hot and dehydrated. Gastrointestinal: Positive for nausea and vomiting with some blood streaks this morning. Reports dark stools. Denies abdominal pain. Genitourinary: Denies burning with urination. Respiratory: Denies coughing. General: Denies fevers or other symptoms of illness. on exam Constitutional: No acute distress, conversant, pleasant Eyes: Anicteric sclerae, moist conjunctiva, Pupils equal round reactive to light ENMT: NC/AT Oropharynx clear, no erythema, or exudates Neck: Supple, no masses, or JVD No carotid bruits No thyromegaly Lungs: Clear to auscultation Clear to percussion Normal respiratory effort, no accessory muscle use Cardiovascular: Heart regular in rate and rhythm, No murmurs, gallops, or rubs No peripheral edema Abdominal: Soft Nontender, no guarding, rebound or rigidity Abdomen moving with respiration Normoactive bowel sounds Extremities: No digital cyanosis No clubbing Pedal pulses intact and symmetrical Radial pulses intact and symmetrical No calf tenderness Psychiatric: Alert and oriented to person, place and time Appropriate affect fair judgement Neuro Muscles Strength 5/5 in all 4 extremities Sensation to light touch grossly present throughout Cranial nerves II-XII grossly intact Past Medical History Past Medical History: Hypertension History of Any Multi-Drug Resistant Organisms: None Reported Past Surgical History: No Surgical Hx Reported Past Psychological History: No Psychological Hx Reported Smoking Status: Current every day smoker Past Alcohol Use History: Daily Past Drug Use History: Marijuana Medications and Allergies Home Medications Medication Instructions Recorded Confirmed Type No Known Home Medications 08/17/24 08/17/24 History Allergies Allergy/AdvReac Type Severity Reaction Status Date / Time No Known Allergies Allergy Verified 08/17/24 20:10 Physical Exam Vitals: Vital Signs Temp Pulse Resp BP Pulse Ox 08/17/24 17:03 98.7 F 80 18 135/83 99 08/17/24 14:14 98.0 F 95 16 127/75 97 Intake and Output 08/17/24 08/17/24 08/17/24 06:59 14:59 22:59 Other: Weight 67.132 kg Results CBC & Chem 7: 08/17/24 15:22 08/17/24 15:22 Labs: Abnormal Lab Results - Last 24 Hours (Table) 08/17/24 08/17/24 08/17/24 Range/Units 15:22 15:22 15:22 WBC 25.16 H (4.50-10.00) 10*3/uL Hgb 17.7 H (13.0-17.0) g/dL Hct 54.0 H (39.6-50.0) % Immature Gran # 0.14 H (0.00-0.04) 10*3/uL Neutrophils # 21.71 H (1.80-7.70) 10*3/uL Monocytes # 1.62 H (0.20-1.00) 10*3/uL Eosinophils # 0.00 L (0.04-0.35) 10*3/uL Basophils # 0.17 H (0.00-0.10) 10*3/uL PT (10.0-12.5) sec INR (<1.2) VBG pH (7.31-7.41) VBG HCO3 (24-28) mmol/L Carbon Dioxide 10 L (22-30) mmol/L Plasma Lactic Acid [place] 11.2 H* (0.7-2.0) mmol/L Calcium 10.8 H (8.4-10.2) mg/dL Phosphorus (2.5-4.5) mg/dL Total Bilirubin 1.8 H (0.2-1.3) mg/dL AST 276 H (17-59) U/L ALT 90 H (4-49) U/L Total Protein 9.4 H (6.3-8.2) g/dL Albumin 5.9 H (3.5-5.0) g/dL Ur Specific [place] (1.001-1.035) Urine Ketones (Negative) 08/17/24 08/17/24 08/17/24 Range/Units 16:45 17:32 17:32 WBC (4.50-10.00) 10*3/uL Hgb (13.0-17.0) g/dL Hct (39.6-50.0) % Immature Gran # (0.00-0.04) 10*3/uL Neutrophils # (1.80-7.70) 10*3/uL Monocytes # (0.20-1.00) 10*3/uL Eosinophils # (0.04-0.35) 10*3/uL Basophils # (0.00-0.10) 10*3/uL PT 13.8 H (10.0-12.5) sec INR 1.3 H (<1.2) VBG pH 7.23 L (7.31-7.41) VBG HCO3 19 L (24-28) mmol/L Carbon Dioxide (22-30) mmol/L Plasma Lactic Acid [place] (0.7-2.0) mmol/L Calcium (8.4-10.2) mg/dL Phosphorus 5.3 H (2.5-4.5) mg/dL Total Bilirubin (0.2-1.3) mg/dL AST (17-59) U/L ALT (4-49) U/L Total Protein (6.3-8.2) g/dL Albumin (3.5-5.0) g/dL Ur Specific [place] (1.001-1.035) Urine Ketones (Negative) 08/17/24 08/17/24 08/17/24 Range/Units 17:58 18:02 21:00 WBC (4.50-10.00) 10*3/uL Hgb (13.0-17.0) g/dL Hct (39.6-50.0) % Immature Gran # (0.00-0.04) 10*3/uL Neutrophils # (1.80-7.70) 10*3/uL Monocytes # (0.20-1.00) 10*3/uL Eosinophils # (0.04-0.35) 10*3/uL Basophils # (0.00-0.10) 10*3/uL PT (10.0-12.5) sec INR (<1.2) VBG pH (7.31-7.41) VBG HCO3 (24-28) mmol/L Carbon Dioxide (22-30) mmol/L Plasma Lactic Acid [place] 9.8 H* 4.6 H* (0.7-2.0) mmol/L Calcium (8.4-10.2) mg/dL Phosphorus (2.5-4.5) mg/dL Total Bilirubin (0.2-1.3) mg/dL AST (17-59) U/L ALT (4-49) U/L Total Protein (6.3-8.2) g/dL Albumin (3.5-5.0) g/dL Ur Specific [place] >1.050 H (1.001-1.035) Urine Ketones 1+ H (Negative) Assessment and Plan Assessment: 33-year-old male with no significant past medical history coming in for repeated nausea vomiting after binge drinking alcohol I discussed case with ED doctor and accepted the admission for supportive care with anticipated length of stay less than 2 midnights Severe dehydration Repeated nausea vomiting likely related to alcohol consumption. There is concern for possible upper gastrointestinal bleeding given the report of blood-streaked vomitus and dark stools. Differential diagnoses include alcohol-induced gastritis, Francy-Slade tear, or peptic ulcer disease. Metabolic acidosis secondary to severe lactic acidosis from severe dehydration repeated nausea vomiting Plan: 1. Continue intravenous fluid rehydration with normal saline 2. Monitor for signs of ongoing gastrointestinal bleeding continue to check CBC every 6 hours 3. Repeat blood work in the morning to reassess hydration status and blood counts 4. Encourage oral intake as tolerated 5. Provide education on alcohol cessation and its health impacts 6. Consider upper endoscopy if symptoms worsen or hemodynamic instability develops 7. Discharge planning: Anticipate possible discharge tomorrow morning if blood work improves and patient feels better 8. Follow-up with primary care physician for management of untreated hypertension 9. Recommend substance abuse counseling for alcohol use Blood work showing hemoglobin of 17 white count of 25 was possibly component of dehydration 2 Urine analysis unremarkable Acetone in the blood negative Alcohol level negative Sodium 145 potassium 4.7 BUN 13 creatinine 1.06 unremarkable Full code DVT prophylaxis Lovenox 40 mg subcu daily
[2024-08-18] MEDS: LORazepam 0.5 MG TAB PO PRN (02:40)
[2024-08-18] MEDS: ENOXAPARIN 40 MG/0.4 ML SYRINGE SQ SCH (08:26)
[2024-08-18] MEDS: PANTOPRAZOLE 40 MG TABLET PO SCH (08:48)
[2024-08-18 08:50] VITALS: RESP 20
[2024-08-18 09:55] VITALS: PULSE 88
[2024-08-18] MEDS: THIAMINE 100 MG TAB PO SCH (09:56)
[2024-08-18] MEDS: FOLIC ACID 1 MG TAB PO SCH (09:56)
[2024-08-18 10:22] LABS: Basophils % (A) 0.4 %; Eosinophils % (A) 0 %; HCT 46.3 % (39.6-50.0); HGB 15.2 g/dL (13.0-17.0); Lymphocytes # (A) 1.56 X 10*3/uL (0.90-5.00); Lymphocytes % (A) 10.9 %; MCH 31.3 pg (27.0-32.0); MCHC 32.8 g/dL (32.0-37.0); MCV 95.5 FL (80.0-97.0); Mean Platelet Volume 11.6 FL (9.5-12.2); Monocytes % (A) 7.5 %; NRBC Per 100 WBC 0 X 10*3/uL (0.00-0.01); Neutrophils # (A) 11.58 X 10*3/uL (1.80-7.70); Neutrophils % (A) 80.7 %; Platelet Count 213 X 10*3/uL (140-440); RBC 4.85 X 10*6/uL (4.40-5.60); RDW 12.3 % (11.5-14.5); WBC 14.34 X 10*3/uL (4.50-10.00)
[2024-08-18 10:23] LABS: Basophils # (A) 0.06 X 10*3/uL (0.00-0.10); Eosinophils # (A) 0 X 10*3/uL (0.04-0.35); Monocytes # (A) 1.07 X 10*3/uL (0.20-1.00)
[2024-08-18 10:26] LABS: BUN/Creat Ratio 13.73 Ratio (12.00-20.00); Blood Urea Nitrogen 15.1 mg/dL (9.0-27.0); Calcium 9.5 mg/dL (8.7-10.3); Carbon Dioxide 25.4 mmol/L (21.6-31.8); Chloride 98 mmol/L (96-109); Glucose 117 mg/dL (70-110); Potassium 4.2 mmol/L (3.5-5.5); Sodium 136 mmol/L (135-145)
[2024-08-18 11:02] LABS: Basophils # (A) 0.06 X 10*3/uL (0.00-0.10); Basophils % (A) 0.5 %; Eosinophils # (A) 0.01 X 10*3/uL (0.04-0.35); Eosinophils % (A) 0.1 %; HCT 45.2 % (39.6-50.0); HGB 15.3 g/dL (13.0-17.0); Lymphocytes # (A) 1.48 X 10*3/uL (0.90-5.00); Lymphocytes % (A) 12.3 %; MCH 32.1 pg (27.0-32.0); MCHC 33.8 g/dL (32.0-37.0); MCV 94.8 FL (80.0-97.0); Mean Platelet Volume 11.6 FL (9.5-12.2); Monocytes # (A) 1.24 X 10*3/uL (0.20-1.00); Monocytes % (A) 10.3 %; NRBC Per 100 WBC 0 X 10*3/uL (0.00-0.01); Neutrophils # (A) 9.24 X 10*3/uL (1.80-7.70); Neutrophils % (A) 76.5 %; Platelet Count 190 X 10*3/uL (140-440); RBC 4.77 X 10*6/uL (4.40-5.60); RDW 12.3 % (11.5-14.5); WBC 12.07 X 10*3/uL (4.50-10.00)
[2024-08-18 12:26] VITALS: BP 132/74
--- NOTE | 2024-08-18 12:41 | P.DS ---
Providers Date of admission: 08/17/24 19:32 Expected date of discharge: 08/18/24 Attending physician: Brittani Leal MD Primary care physician: Stated None Hospital Course: Discharge Diagnosis: Severe dehydration Leukocytosis Lactic acidosis Metabolic acidosis Transaminitis Hyperbilirubinemia Hypercalcemia Alcohol dependence Alcoholic gastritis Hospital Course: History of alcohol dependence presented with dehydration and vomiting. He often drinks a whole pint of alcohol. On arrival, vital signs within normal limits. WBC 25.16, hemoglobin 17, platelet 285 bicarb 10 anion gap 31, lactate 9.8, calcium 10.8, total bili 1.8, AST 276, ALT 90, lipase 100 urinalysis negative for nitrates and leukocyte esterase, alcohol negative, acetone negative. Patient was given IV fluids with improvement in his blood work. WBC 12.7 at the time of discharge. Hemoglobin remained stable. Lactate normalized. Calcium normalized. Patient denies any further nausea vomiting. Will be discharged on oral pantoprazole and thiamine. Follow-up with PCP. Patient seen and examined at bedside. Vital signs reviewed and stable. General: Nontoxic, no distress, appears at stated age Derm: Warm, dry Head: Atraumatic, normocephalic, symmetric Eyes: EOMI, no lid lag, anicteric sclera Mouth: No lip lesion, mucus membranes moist Cardiovascular: S1S2 reg, no murmur Lungs: CTA bilateral, no rhonchi, no rales, no accessory muscle use Abdominal: Soft, nontender to palpation, no guarding, no appreciable organomegaly Ext: No gross muscle atrophy, no edema, no contractures Neuro: CN II-XI grossly intact, no focal neuro deficits Psych: Alert, oriented, appropriate affect A total of 36 minutes of time were spent preparing this complex discharge summary. Patient was discharged on 08/18/2024 at 1136. Plan - Discharge Summary New Discharge Prescriptions: New Pantoprazole [Protonix] 40 mg PO DAILY #60 tab Thiamine [Vitamin B-1] 100 mg PO DAILY #100 tab No Action No Known Home Medications Discharge Medication List No Known Home Medications 08/17/24 [History] Pantoprazole [Protonix] 40 mg PO DAILY #60 tab 08/18/24 [Rx] Thiamine [Vitamin B-1] 100 mg PO DAILY #100 tab 08/18/24 [Rx] Follow up Appointment(s)/Referral(s): Aubrey Sheth MD [STAFF PHYSICIAN] - 1 Week None,Stated [Primary Care Provider] - 1-2 days Patient Instructions/Handouts: Gastritis (DC), Dehydration (DC), Abuse of Alcohol (DC) Activity/Diet/Wound Care/Special Instructions: Please see PCP. Discharge Disposition: HOME SELF-CARE
== END 2024-08-18 12:26 | disposition home or self-care (01) ==
LOC: EC 13:52 → 5NMEDONC 19:32
PROVIDERS: ADMIT Internal Medicine; ATTEND Internal Medicine
DX: E86.0 Dehydration (principal); E87.29 Other acidosis; F10.20 Alcohol dependence, uncomplicated; K29.20 Alcoholic gastritis without bleeding; Y90.0 Blood alcohol level of less than 20 mg/100 ml; I10 Essential (primary) hypertension; D72.829 Elevated white blood cell count, unspecified; R19.5 Other fecal abnormalities; F12.90 Cannabis use, unspecified, uncomplicated; R74.01 Elevation of levels of liver transaminase levels; E83.52 Hypercalcemia; R17 Unspecified jaundice; F17.200 Nicotine dependence, unspecified, uncomplicated
CPT/HCPCS: 96361 ×2; 96374; 96375; 99285; 36415; 93005; 80053; 80048; 82550; 82803; 82009; 83605 ×2; 83690; 83735; 84100; 85025 ×2; 85610; 85730; 81003; 80320; 74177; G0378 ×2; J2060; J2405; Q9967